=== PATIENT | female | born 1935 | race Caucasian/White ===

== ENCOUNTER 2019-02-02 10:09 | Emergency (ER) | payer MEDICARE, BC ==
[2019-02-02] MEDS ORDERED: Ondansetron ODT TAB* 4 MG PO ONE (10:23)
[2019-02-02 10:25] VITALS: BP 117/46
--- NOTE | 2019-02-02 10:27 | UC ---
UC General HPI - HPI Summary HPI Summary: Woke up today w/ nausea, vomtting and diarrhea. Emesis x1 and diarrhea x1 this morning. Unsure of fever. Able to keep sips of water down. Pt c/o "awful tired" . Pt here w/ niece who states she had same symptoms of vomitting/diarrhea couple days ago that resolved on its own - History of Current Complaint Stated Complaint: DIARRHEA Time Seen by Provider: 02/02/19 10:16 Hx Obtained From: Patient Hx Last Menstrual Period: n/a Onset/Duration: Sudden Onset, Lasting Days Timing: Constant Onset Severity: Mild Current Severity: Moderate Associated Signs & Symptoms: Positive: Diarrhea, Vomiting - Allergy/Home Medications Allergies/Adverse Reactions: Allergies Allergy/AdvReac Type Severity Reaction Status Date / Time No Known Allergies Allergy Verified 05/17/18 09:58 PMH/Surg Hx/FS Hx/Imm Hx Previously Healthy: Yes - Surgical History Surgical History: Yes Surgery Procedure, Year, and Place: left arm lesion - Family History Known Family History: Positive: Hypertension - Social History Alcohol Use: Rare Substance Use Type: None Smoking Status (MU): Former Smoker When Did the Patient Quit Smoking/Using Tobacco: 40 years ago Review of Systems All Other Systems Reviewed And Are Negative: Yes Constitutional: Positive: Fatigue Gastrointestinal: Positive: Diarrhea, Nausea Is Patient Immunocompromised?: No Physical Exam Triage Information Reviewed: Yes Appearance: Well-Nourished, Ill-Appearing, Pain Distress Vital Signs Reviewed: Yes Eye Exam: Normal ENT Exam: Normal Dental Exam: Normal Neck exam: Normal Respiratory Exam: Normal Respiratory: Positive: Chest non-tender, Lungs clear, Normal breath sounds Cardiovascular: Positive: No Murmur, Other: - HR irregular Abdominal Exam: Normal Abdomen Description: Positive: Nontender, No Organomegaly, Soft Bowel Sounds: Positive: Hyperactive Musculoskeletal Exam: Normal Neurological Exam: Normal Psychological Exam: Normal Skin Exam: Normal Course/Dx - Course Course Of Treatment: hx obtained, exam performed, meds reviewed, treated for nausea and vomiting. advised to take the zofran every 6 hours today and offer frequent fluids, follow up in the ER if not improving or getting worse. - Diagnoses Provider Diagnosis: Nausea vomiting and diarrhea Discharge ED - Sign-Out/Discharge Documenting (check all that apply): Patient Departure All imaging exams completed and their final reports reviewed: No Studies - Discharge Plan Condition: Stable Disposition: HOME Prescriptions: Ondansetron ODT TAB* [Zofran 4 MG Odt TAB*] 4 mg PO Q6H PRN #16 tab.odt PRN Reason: Vomiting Patient Education Materials: Acute Nausea and Vomiting (ED) Referrals: Cindy Wilkinson NP [Primary Care Provider] - Additional Instructions: 1. take the medication as prescribed. 2. Drink plenty of clear fluids 3. Eat as tolerated 4. Follow up in ER if she develops uncontrolled vomiting, signs of dehydration or develops other concerning symtpoms - Billing Disposition and Condition Condition: STABLE Disposition: Home
== END 2019-02-02 10:45 | disposition home or self-care (01) ==
LOC: UCCORT 10:09
DX: R11.2 Nausea with vomiting, unspecified (principal); R19.7 Diarrhea, unspecified; R53.83 Other fatigue; Z87.891 Personal history of nicotine dependence
CPT/HCPCS: 99212; A9270-GY; G0463